=== PATIENT | male | born 1990 | race Caucasian/White ===

== ENCOUNTER 2019-09-22 09:25 | Outpatient (CLI) | payer OTHER ==
--- NOTE | 2019-09-22 14:55 | MRI Report ---
PROCEDURE: Wrist RT W/O INDICATIONS: RIGHT WRIST PAIN TECHNIQUE: Noncontrast coronal proton density fast spin echo and T2 fast spin echo with fat saturation; coronal 3-D gradient echo, axial T1 spin echo and T2 fast spin echo with fat saturation, sagittal T1 spin ech o through the wrist. COMPARISON: None. FINDINGS: Image quality: Excellent. Bones and cartilage: The carpal bones are normally aligned. No bone marrow contusions or fractures. No evidence for avascular necrosis. Overlying cartilage surfaces appear normal. Carpal ligaments: The scapholunate and lunotriquetral ligaments appear intact. In the absence of in tra-articular contrast, the extrinsic carpal ligaments are not well identified. On sagittal images, the pisohamate ligament appears intact. Triangular fibrocartilage complex: The triangular fibrocartilage appears intact. The adjacent menis vanessa homolog appears normal in the absence of intra-articular contrast. The extensor carpi ulnaris te ndon is normal in location and morphology. Tendons and soft tissues: Surgical skin marker is placed over malar and radial aspect of wrist over t he flexor carpi radialis tendon. Lobulated cystic structure is seen in deep soft tissue over the late ral aspect of radial styloid and measures up to 5 x 8 x 9 mm in size with thin internal septation mos t consistent with a ganglion cyst in this area. The carpal tunnel structures appear normal, including the median nerve. The ulnar nerve appears normal within Guyon?s canal. All six extensor tendon com partments demonstrate normal morphology, without pathologic tendon sheath fluid. IMPRESSION: 1. Lobulated and septated cystic structure over the volar aspect of radial styloid and is deep to the flexor carpi radialis tendon measures 5 x 8 x 9 mm in size consistent with a ganglion cyst in this a hany. No other soft tissue mass or fluid collection is seen. 2. No marrow edema. No fracture or dislocation. 3. Wrist tendons and ligaments are grossly intact. Triangular fibrocartilage complex is intact. Reviewed by: Edilberto Castle MD on 09/22/2019 2:54 PM PDT Approved by: Edilberto Castle MD on 09/22/2019 2:54 PM PDT Station ID: [id number]
== END 2019-09-22 09:26 | disposition home or self-care (01) ==
LOC: DI 09:25
PROVIDERS: ATTEND Orthopaedic Surgery
DX: M67.431 Ganglion, right wrist (principal)

== ENCOUNTER 2023-08-02 16:47 | Emergency (ER) | payer OTHER ==
--- NOTE | 2023-08-02 17:55 | ED Physician Documentation ---
PD HPI OPHTHO - Stated complaint Stated Complaint: OBJECT IN EYE - Chief complaint Chief Complaint: Heent - History obtained from History obtained from: Patient (33-year-old gentleman was grinding metal at home yesterday and has a foreign body sensation with light sensitivity in the right eye.) PD PAST MEDICAL HISTORY - Past Medical History Past Medical History: No Cardiovascular: None Respiratory: None Neuro: None Endocrine/Autoimmune: None GI: None : None HEENT: None Psych: None Musculoskeletal: None Derm: None - Past Surgical History Past Surgical History: No - Present Medications Home Medications: Ambulatory Orders Medication Instructions Recorded Confirmed Erythromycin Base [Erythromycin 1 appful OP 5XD 7 Days #1 gm 08/02/23 Ophthalmic Ointment] - Allergies Allergies/Adverse Reactions: Allergies Allergy/AdvReac Type Severity Reaction Status Date / Time No Known Drug Allergies Allergy Verified 08/02/23 16:51 - Social History Does the pt smoke?: No Smoking Status: Never smoker Does the pt drink ETOH?: No Does the pt have substance abuse?: No - Immunizations Immunizations are current?: Yes - POLST Patient has POLST: No PD ED PE NORMAL - Vitals Vital signs reviewed: Yes - General General: Alert and oriented X 3, No acute distress - HEENT HEENT: PERRL, EOMI, Other (Small metallic foreign body right cornea just medial to the visual axis.) - Neuro Neuro: Alert and oriented X 3 Results - Vitals Vitals: Vital Signs - 24 hr 08/02/23 16:51 Temperature 36.8 C Heart Rate 50 L Respiratory 16 Rate Blood Pressure 150/90 H O2 Saturation 99 Oxygen O2 Source Room air Procedures - FB removal FB location: Other (Right cornea) FB removal preparation: Local anesthesia-specify (Proparacaine drop) Removal method: Other (Combination of ophthalmic bur, moistened Q-tip, and 27- gauge needle I was able to completely remove it. There is no residual rust ring. Post procedurally there was a small fluorescein uptake with negative Robin sign.) FB removal aftercare: No complications Departure - Departure Disposition: 01 Home, Self Care Clinical Impression: Corneal foreign body Qualifiers: Encounter type: initial encounter Laterality: right Qualified Code(s): T15.01XA - Foreign body in cornea, right eye, initial encounter Condition: Good Record reviewed to determine appropriate education?: Yes Instructions: ED Foreign Body Cornea Follow-Up: Hugo Zamorano MD [Provider Admit Priv/Credential] - Prescriptions: Erythromycin Base [Erythromycin Ophthalmic Ointment] 1 appful OP 5XD 7 Days #1 gm Comments: Looks like we got it completely out. If still having symptoms after a couple of days can follow-up with the equalizing saw operator listed on this form. Return if worse.
[2023-08-02] MEDS: ERYTHROMYCIN OPHTH OINT 1 GM TUBE RIGHTEYE STA (17:59)
[2023-08-02 18:06] VITALS: BP 130/88; O2SAT 100
== END 2023-08-02 18:01 | disposition home or self-care (01) ==
LOC: ED 16:47
DX: T15.01XA Foreign body in cornea, right eye, initial encounter (principal); W44.E9XA Other non-magnetic metal objects entering into or through a natural orifice, initial encounter; Y93.89 Activity, other specified; Y92.009 Unspecified place in unspecified non-institutional (private) residence as the place of occurrence of the external cause
CPT/HCPCS: 65220; 99283